=== PATIENT | female | born 1940 | race Hispanic/Latino ===

== ENCOUNTER → 2018-05-28 | Outpatient (CLI) | payer MEDICARE ==
[~2018-05-28] MED LIST: ACET-2900 PO; ACET325T51 PO; ASPI-1005 PO; CARV25TA PO; DOCU100T PO; ERGO500014 PO; FURO40TA5 PO; LEVO175T9 PO; LORA10TA7 PO; LOSA50TA25 PO; NITR0.4T50 SL; PRAV40TA3 PO; SPIR25TA6 PO; TRAM50TA4 PO
== END | disposition home or self-care (01) ==
LOC: SHCH 09:25
PROVIDERS: ATTEND Internal Medicine Cardiovascular Disease
DX: I51.7 Cardiomegaly (principal); R06.09 Other forms of dyspnea; R60.9 Edema, unspecified; I10 Essential (primary) hypertension; E78.5 Hyperlipidemia, unspecified
CPT/HCPCS: 93306

== ENCOUNTER → 2018-05-29 | Outpatient (CLI) | payer MEDICARE | END | disposition home or self-care (01) | LOC: SHCH 14:26 | PROVIDERS: ATTEND Internal Medicine Cardiovascular Disease | DX: I87.2 Venous insufficiency (chronic) (peripheral) (principal) | CPT/HCPCS: 93970 ==

== ENCOUNTER → 2018-06-16 | Outpatient (CLI) | payer OTHER, MEDICARE ==
[~2018-06-16] VITALS: Ht 157.5 cm; Wt 120.2 kg
[~2018-06-16] MED LIST changes: +REGADENOSON 0.4 MG/5 ML PF SYG IVP SCH
== END | disposition home or self-care (01) ==
LOC: SHCH 08:03
PROVIDERS: ATTEND Internal Medicine Cardiovascular Disease
DX: I25.5 Ischemic cardiomyopathy (principal)
CPT/HCPCS: 78452; 93017; 96374; A9500 ×2; J2785

== ENCOUNTER → 2018-10-28 | Outpatient (CLI) | payer OTHER, MEDICARE ==
[~2018-10-28] MED LIST changes: -LOSA50TA25 PO; +LOSA50TA64 PO; -REGADENOSON 0.4 MG/5 ML PF SYG IVP SCH
== END | disposition home or self-care (01) ==
LOC: RAH 07:40
PROVIDERS: ATTEND Internal Medicine
DX: K76.0 Fatty (change of) liver, not elsewhere classified (principal); R16.1 Splenomegaly, not elsewhere classified; D73.89 Other diseases of spleen; I87.8 Other specified disorders of veins; R10.2 Pelvic and perineal pain; Z90.710 Acquired absence of both cervix and uterus; Z90.49 Acquired absence of other specified parts of digestive tract
CPT/HCPCS: 76700; 76856

== ENCOUNTER → 2020-03-17 | Outpatient (CLI) | payer OTHER, MEDICARE ==
[~2020-03-17] MED LIST changes: -ACET-2900 PO; +ACET-3194 PO
== END | disposition home or self-care (01) ==
LOC: SHCH 10:10
PROVIDERS: ATTEND Internal Medicine Cardiovascular Disease
DX: I25.5 Ischemic cardiomyopathy (principal)
CPT/HCPCS: 93306